=== PATIENT | male | born 1955 | race Caucasian/White ===

== ENCOUNTER 2024-11-18 09:57 | Day surgery (SDC) | payer MEDICARE, OTHER ==
[~2024-11-18] VITALS: Ht 185.4 cm; Wt 94.9 kg
[2024-11-18] VITALS (12 sets, daily range): BP systolic 119–154; BP diastolic 50–98; PULSE 60–73; RESP 15–19; TEMP 98.6; O2SAT 95–100
--- NOTE | 2024-11-18 10:18 | ELECTROCARDIOGRAPH REPORT ---
[facility] Test Date: 2024-11-18 Test Time: 10:18:23 Pat Name: ORTIZ IVY Department: [facility] Patient ID: [facility]-[id number] Room: Gender: M Cad Administrator: ROCIO : 1955 Requested By: JEANIE MADRID Order Number: [id number] Reading MD: Dr. KELLY Mendoza Measurements Intervals [place] Rate: 63 P: 39 [place]: 205 QRS: 63 QRSD: 117 T: 117 QT: 434 QTc: 445 Interpretive Statements wandering pacemaker. Atrial premature complexes Nonspecific intraventricular conduction delay Nonspecific T abnormalities, lateral leads Electronically Signed On 11-18-2024 11:18:[address] KELLY Mendoza Please click the below link to view image of tracing.
[2024-11-18] MEDS ORDERED: METF-438 PO (10:42)
[2024-11-18] MEDS ORDERED: TIRZ5PEN SQ (10:42)
[2024-11-18] MEDS ORDERED: fentaNYL/PF 50MCG/1 ML 2ML syringe ONE (10:46)
[2024-11-18] MEDS ORDERED: LIDOcaine 1% (10mg/ml) 2ml vial ONE (10:46)
[2024-11-18] MEDS ORDERED: iohexol 350 MG/ML 50ML vial IV ONE ×3 (10:46→12:22)
[2024-11-18] MEDS ORDERED: verapamil 2.5 mg/ml inj IV ONE (10:46)
[2024-11-18] MEDS ORDERED: midazolam 1 mg/ML 2ml injection ONE ×2 (10:46→11:24)
[2024-11-18] MEDS ORDERED: heparin 1,000unit/ml 10ml vial 10 ML ONE (10:47)
[2024-11-18] MEDS ORDERED: nitroGLYCERIN 500mcg/5mL D5W 5 ML IV ONE (10:48)
[2024-11-18 10:50] LABS: MEAN PLATELET VOLUME 8.0 FL (7.4-10.4); RED CELL DISTRIBUTION WIDTH 12.5 % (11.5-14.5)
[2024-11-18] MEDS: sodium bicarbonate 1meq/ml syr 150 ML in dextrose 5%-water 1,000 ML IV ONE (10:59)
[2024-11-18 11:05] LABS: INR 1.1 INR
[2024-11-18 11:07] LABS: CREATININE 1.38 MG/DL (0.60-1.10); TOTAL CARBON DIOXIDE 29.7 MMOL/L (24-32); eCRCL 56 ML/MIN; eGFR 51 ML/MIN
[2024-11-18] MEDS ORDERED: NITR0.4T48 SL (11:14)
[2024-11-18] MEDS ORDERED: ATOR-2 PO (11:14)
[2024-11-18] MEDS ORDERED: POTA8TAB69 PO (11:14)
[2024-11-18] MEDS ORDERED: ASPI-1264 PO (11:14)
[2024-11-18] MEDS ORDERED: THIA250T9 PO (11:14)
[2024-11-18] MEDS ORDERED: CLOP75TA34 PO (11:14)
[2024-11-18] MEDS ORDERED: OMEG100037 PO (11:14)
[2024-11-18] MEDS ORDERED: METO-384 PO (11:14)
[2024-11-18] MEDS ORDERED: CHLO25TA10 PO (11:14)
[2024-11-18] MEDS ORDERED: EMPA10TA PO (11:14)
[2024-11-18] MEDS ORDERED: NIAC500C8 PO (11:14)
[2024-11-18] MEDS ORDERED: CHOL200080 PO (11:26)
[2024-11-18] MEDS ORDERED: MULT-1074 PO (11:26)
[2024-11-18] MEDS ORDERED: ZINC50TA60 PO (11:26)
[2024-11-18] MEDS ORDERED: ASCO100T12 PO (11:26)
[2024-11-18] MEDS ORDERED: LIDOcaine 1% 30ml preserv. free vial ONE (11:27)
[2024-11-18] MEDS ORDERED: protamine sulfate 10mg/ml inj. ONE (12:44)
--- NOTE | 2024-11-19 04:36 | CARDIOLOGY REPORT ---
DATE OF SERVICE: 11/18/2024 DICTATING PHYSICIAN: JEANIE MADRID DO CARDIAC CATHETERIZATION REPORT REFERRING PHYSICIAN: Smith Morales MD CLINICAL HISTORY: This 69-year-old man is being considered for TAVR. Echocardiography demonstrates severe aortic stenosis. There is also a prior history of 3-vessel CABG with the use of bilateral intramedullary nails and a saphenous vein graft. PROCEDURES PERFORMED: * Right heart catheterization. * Left heart catheterization. * Left ventriculography. * Selective coronary arteriography. * Selective opacification of bypass grafts. * Percutaneous arteriotomy closure (Perclose). * A 75 minutes conscious sedation and supervision. DESCRIPTION OF PROCEDURE: The patient was sedated with fentanyl and Versed. He was then prepared and draped in the usual manner. The right cubital area had a pre-placed 18-gauge Angiocath. The area around this catheter was infiltrated with 1% lidocaine. Then, using a short 0.035 guidewire, a 6-Kyrgyz sheath was placed in the basilic vein. Using this vessel, a 6-Kyrgyz [place] Brianne catheter was used to perform a right heart catheterization. Cardiac output was determined by thermodilution technique. The right inguinal area was infiltrated with 1% lidocaine using a micropuncture set and a Seldinger technique. A 7-Kyrgyz sheath was placed in the common femoral artery. 3,000 units of heparin were given twice during this procedure. Left heart catheterization and left ventriculography were performed using a double lumen [place] catheter. Coronary arteriography was performed using #4, 6-Kyrgyz left and right Reyes catheters. The saphenous vein graft to what appeared to be an LAD diagonal was opacified using the right Reyes catheter. A left 6-Kyrgyz BALJEET catheter was used to opacify the left internal mammary bypass graft. Multiple catheters were used in an attempt to adequately opacify the right internal mammary graft, but none were optimal for visualizing the grafted right coronary, although the BALJEET graft itself was easily seen. Therefore, the right radial area was anesthetized and a 6-Kyrgyz sheath was placed in this vessel. Using an BALJEET, a Michael right was used, but neither would selectively opacify the right internal mammary because it was in a sharp curve near the origin of the brachial artery. Nevertheless, flush injections were utilized as optimally as possible. The sheath in the right common femoral artery was removed and the access site was Perclosed. The sheath in the right radial artery was removed and a Vasc band was applied. RESULTS: HEMODYNAMIC DATA: The mean right atrial pressure was 4 mmHg, right ventricular pressure was 26/4 mmHg, mean pulmonary capillary wedge pressure was 15 mmHg, pulmonary arterial pressure was 32/17 mmHg, left ventricular end-diastolic pressure was 18 mmHg. There was a 50 mm gradient across the aortic valve. Cardiac output by thermal dilution technique was 3.78 L/min. The short-form calculation of aortic valve area was 0.53 cm2. LEFT VENTRICULOGRAM: The left ventriculogram was estimated to be about 40%, but post PVC it appeared to be 60%. There is stenting in the LAD system. CORONARY ARTERIOGRAPHY: The coronary arteriograms were technically satisfactory. The patient appeared to have a right dominant system. LEFT MAIN CORONARY ARTERY: The left main was a large unobstructed vessel bifurcating into left anterior descending and circumflex coronary arteries. LEFT ANTERIOR DESCENDING CORONARY ARTERY: The LAD appeared to be large proximally, but the remainder of its distribution was medium in caliber. In the mid vessel, there was about a 60% stenosis. There also was an occluded diagonal taking its origin very close to the mid LAD stenosis. CIRCUMFLEX CORONARY ARTERY: The circumflex was a large main stem vessel. ____. There were two additional very small caliber obtuse marginal branches. There was a long medium-sized posterolateral branch narrowed by about 50% midway along its length and there was a small caliber second posterolateral. There were no high-grade stenoses in this vessel and the 50% narrowing in the first posterolateral was in a vessel judged to be about 2 mm in size. RIGHT CORONARY ARTERY: The right coronary was totally occluded proximally. SELECTIVE OPACIFICATION OF BYPASS GRAFTS: A saphenous vein graft leading to a diagonal branch was patent, but there was virtually no filling of the diagonal. Flush injections in proximity to the right internal mammary artery indicated that it was patent down to the distal right coronary ahead of the posterior descending branch. There appeared to be a posterior descending branch and at least one posterolateral branch. The left internal mammary artery was patent and anastomosed to the mid LAD. The LAD beyond the anastomosis was very small in caliber. CONCLUSIONS: * Severe aortic stenosis. There was a 50 mm transvalvular gradient and the average cardiac output was 3.73 liters per minute. Using the short form, the estimated valve area was 0.53 cm2. * Old obstructive coronary artery disease manifested as follows: A. At least 60% mid LAD. B. 100% occlusion of an LAD diagonal. C. A 50% narrowing of the first of two circumflex posterolateral branches. D. 100% proximal occlusion to the right coronary. * Bypass graft status as follows: A. LINARES to LAD patent in the graft and the [place] vessel beyond the distal anastomosis. B. Right internal mammary graft to distal right coronary is patent and it appears to fill a PDA and at least one posterolateral branch. C. Patent saphenous vein graft to a diagonal branch, but there is essentially no filling of the diagonal beyond the distal anastomosis, which nevertheless remains patent. * Left ventricular function appears to be moderately reduced. The estimated LVEF was 40%, but post PVC, it was approximately 60%. RECOMMENDATIONS: Ongoing medical therapy with consideration of TAVR. JEANIE MADRID DO TID: [id number] RECEIPT: [id number] DEENA/TASNEEM
== END 2024-11-18 17:15 | disposition home or self-care (01) ==
LOC: SSTAY O 09:57
PROVIDERS: ATTEND Internal Medicine Cardiovascular Disease
DX: I25.10 Atherosclerotic heart disease of native coronary artery without angina pectoris (principal); I35.0 Nonrheumatic aortic (valve) stenosis; I25.82 Chronic total occlusion of coronary artery; E78.5 Hyperlipidemia, unspecified; N18.9 Chronic kidney disease, unspecified; E11.22 Type 2 diabetes mellitus with diabetic chronic kidney disease; Z79.899 Other long term (current) drug therapy
CPT/HCPCS: 36415; 80048; 83735; 85025; 85610; 93005; 93461; A6258; A6402; C1751; C1760; C1769; C1887; C1894; J1200; J1644; J2003; J2250; J2720; J3010; J3490; J7030; J7070; Q9967; 99152; 99153; A6449

== ENCOUNTER 2024-12-05 09:37 | Outpatient (CLI) | payer MEDICARE, OTHER ==
[~2024-12-05 09:37] MED LIST: ASCO100T12 PO; ASPI-1264 PO; ATOR-2 PO; CHLO25TA10 PO; CHOL200080 PO; CLOP75TA34 PO; EMPA10TA PO; IODIXANOL 320 MG/ML INFUS..BTL 100ML IV ONE; METF-438 PO; METO-384 PO; MULT-1074 PO; NIAC500C8 PO; NITR0.4T48 SL; OMEG100037 PO; POTA8TAB69 PO; THIA250T9 PO; TIRZ5PEN SQ; ZINC50TA60 PO
[2024-12-05 10:11] LABS: MEAN PLATELET VOLUME 7.5 FL (7.4-10.4); RED CELL DISTRIBUTION WIDTH 12.9 % (11.5-14.5)
[2024-12-05 10:24] LABS: APTT 27 SECONDS (22-32); INR 1.0 INR
[2024-12-05 11:29] LABS: CREATININE 1.88 MG/DL (0.60-1.10); PRO BRAIN NATRIURETIC PEPTIDE 442 PG/ML (0-125); TOTAL CARBON DIOXIDE 28.2 MMOL/L (24-32); eGFR 36 ML/MIN
--- NOTE | 2024-12-05 12:13 | RADIOLOGY REPORT ---
DI CHEST,TWO VIEWS CLINICAL HISTORY: TAVR COMPARISON: None TECHNIQUE: Frontal and lateral view of the chest was obtained FINDINGS: Lines and Tubes: None Lungs: No focal consolidation. Pleura: No effusion. No pneumothorax. Cardiomediastinal contours: Cardiomegaly Bones: No acute osseous abnormality. IMPRESSION: No acute cardiopulmonary disease.
--- NOTE | 2024-12-05 12:51 | VASCULAR REPORT ---
US CAROTID DOPPLER CLINICAL INDICATION: Hypertension, diabetes, preoperative evaluation TECHNIQUE: Multiple grayscale, color Doppler and spectral Doppler ultrasound images were obtained thr oughout both carotid systems. COMPARISON: None FINDINGS: RIGHT: CCA PSV: 66 cm/s ECA PSV: 93 cm/s ICA PSV: 64 cm/s ICA EDV: 22 cm/s ICA/CCA Ratio: 1.2 Vertebral artery: Patent, antegrade flow. There is no visible stenosis. Mild mixed atherosclerotic plaque at the carotid bifurcation. Spectral analysis demonstrates no hemodynamically significant CCA or ICA stenosis. LEFT: CCA PSV: 105 cm/s ECA PSV: 58 cm/s ICA PSV: 64 cm/s ICA EDV: 25 cm/s ICA/CCA Ratio: 0.9 Vertebral artery: Patent, antegrade flow. There is no visible stenosis. Mild mixed atherosclerotic plaque at the carotid bifurcation. Spectral analysis demonstrates no hemodynamically significant CCA or ICA stenosis. IMPRESSION: No evidence of hemodynamically significant CCA or ICA stenosis.
--- NOTE | 2024-12-06 12:58 | RADIOLOGY REPORT ---
Procedure: CT CTA TAVR Reason for study/Clinical History: Chest pain, evaluate for dissection. Comparison Study: None Exam Date: 12/05/2024 11:58 AM TECHNIQUE: Multiplanar reformatted images were generated from volumetric data acquired on a multidetector CT [facility]. Cardiac gating was utilized. Arterial phase images were obtained through the chest, abdomen and pelvis following intravenous administration of contrast material. 100 mL visipaque [address] dose reduction techniques were utilized. 3-D reconstructions were performed on an independent work station. Radiation Dose Information: CT Dose: CTDI volume is 65 mGy. Dose-length product is 2454 mGy*cm FINDINGS: Vascular: Aortic measurements: Aortic annulus: 32.2 x 26.1 mm Sinus of valsalva: right cusp 36.5 mm, left cusp 38.9 mm, non-coronary cusp 42.7 mm Right coronary distance: 19.8 Left coronary distance: 11.1 ST junction 33.1 mm Ascending aorta 37.5 mm Aortic arch 27.8 mm Descending aorta 25.4 mm Aortic hiatus 25 mm Upper abdominal aorta 23.6 mm Minimal abdominal aorta 15.8 mm Right common iliac 10.3 mm, tortuosity index 1.17 Left common iliac 9.69 mm, tortuosity index 1.21 There is normal caliber of aorta. No aortic dissection. Aortic arch anatomy is 4 vessel. There is con ventional coronary artery anatomy. Scattered calcified atherosclerotic plaque. No central pulmonary embolism. There is normal dimension of the main pulmonary artery. Heart is mildly enlarged. There are no intracardiac filling defects. No pericardial effusion. Mediastinum: Subcentimeter mediastinal nodes. Lungs: Atelectasis and scarring in the lung bases. Pleura: No effusion or pneumothorax. Chest wall: No acute abnormality. Abdomen and Pelvis: Liver: Subcentimeter cysts in the liver. Gallbladder: Cholelithiasis. Spleen: Normal in appearance. Pancreas: Normal in appearance. Adrenals: Normal in appearance. Kidneys: Normal in appearance. Bowel: Normal in appearance. Peritoneum: No free air or free fluid. Fat containing bilateral inguinal hernias left greater than ri ght. Lymph nodes: No lymphadenopathy by CT size criteria. Pelvic structures: No pelvic mass. Bones: Degenerative changes in the spine. IMPRESSION: 1. TAVR planning with vascular measurements as described above. 2. Mild cardiomegaly. Subcentimeter cysts in the liver. Cholelithiasis. Fat containing bilateral ing uinal hernias left greater than right. HS:Y
== END 2024-12-05 23:59 | disposition home or self-care (01) ==
LOC: RAD 09:37
PROVIDERS: ATTEND Internal Medicine Cardiovascular Disease
DX: Z01.818 Encounter for other preprocedural examination (principal); I65.23 Occlusion and stenosis of bilateral carotid arteries; K80.20 Calculus of gallbladder without cholecystitis without obstruction; K40.20 Bilateral inguinal hernia, without obstruction or gangrene, not specified as recurrent; I11.9 Hypertensive heart disease without heart failure; K76.89 Other specified diseases of liver; I70.90 Unspecified atherosclerosis; J98.11 Atelectasis; J98.4 Other disorders of lung; M47.814 Spondylosis without myelopathy or radiculopathy, thoracic region; E11.9 Type 2 diabetes mellitus without complications; I35.0 Nonrheumatic aortic (valve) stenosis; R06.02 Shortness of breath; I65.29 Occlusion and stenosis of unspecified carotid artery
CPT/HCPCS: 36415; 71046; 71275; 74174; 75572; 80053; 83880; 85025; 85610; 85730; 93880; Q9967

== ENCOUNTER 2024-12-12 13:49 | Outpatient (CLI) | payer MEDICARE, OTHER ==
[~2024-12-12] VITALS: Ht 185.4 cm; Wt 91.9 kg
[~2024-12-12 13:49] MED LIST changes: -IODIXANOL 320 MG/ML INFUS..BTL 100ML IV ONE
[2024-12-12 15:21] VITALS: BP 138/80; PULSE 73; RESP 16; TEMP 97.8; O2SAT 99
--- NOTE | 2024-12-12 16:34 | CONSULTATION ---
DATE OF CONSULTATION: 12/12/2024 DICTATING PHYSICIAN: Checo Gibbons M.D. CARDIOVASCULAR CONSULTATION REFERRING PHYSICIAN: Smith Morales DO Dear Dr. Morales, we had the pleasure of seeing the patient here for cardiovascular consultation with regard to severe symptomatic aortic valve stenosis. As you recall, a very pleasant 69-year-old gentleman. He has a history of previous multivessel bypass [place] [address] Morley. At that time, he had a LINARES to the LAD, a JENNY to the PDA, and a reverse saphenous vein graft to the diagonal. He subsequently had stenting done in 2013 with PCI to the LAD and the diagonal and he has undergone recent angiographic imaging showing most of his grafts to be patent. He has hypertension, hyperlipidemia, diabetes, obstructive sleep apnea, and progressive worsening aortic valve stenosis. He was found to have an overall ejection fraction of 40% despite this, a mean gradient across the aortic valve of 41 mmHg. He has had progressive shortness of breath and dyspnea on exertion. He has balance problems and lower leg fatigue and was sent to us to determine whether or not he was a candidate for TAVR. He has been seen in clinic by Dr. Morley, who agrees TAVR would be in his best interest. PAST MEDICAL HISTORY: * Severe symptomatic aortic valve stenosis. * Systolic heart failure, EF 40%. * Hyperlipidemia. * Diabetes. * Obstructive sleep apnea, on CPAP. * Coronary artery disease. PAST SURGICAL HISTORY: Three-vessel bypass surgery in [address] Morley. MEDICATIONS: Metformin 1000 mg twice a day, metformin 50 mg sustained release a day, Lipitor 80 mg a day, Plavix 75 mg a day, chlorthalidone 25 mg a day, potassium supplementation, metoprolol extended release 50 mg twice a day, lisinopril 20 mg a day, glyburide 5 mg a day, Norvasc 5 mg a day, Imdur 60 mg a day. ALLERGIES: HE HAD SHORTNESS OF BREATH WITH BRILINTA. SOCIAL HISTORY: Currently nonsmoker. Occasional alcohol use. He is and his , Manuela, is here with him today. PHYSICAL EXAMINATION: VITAL SIGNS: His blood pressure is 125/75 with a heart rate of 65. He weighs around 208 pounds. GENERAL: Well-appearing but sedentary gentleman, in no apparent distress at rest. HEENT: Unremarkable. CARDIOVASCULAR: Regular. He has a 3/6 peaking systolic ejection murmur with a soft S2. No RV heave. LUNGS: Clear. ABDOMEN: Benign. EXTREMITIES: Has very mild bilateral edema. LABORATORY TESTS AND EVALUATION: * CT scan shows that he is a candidate for a 29 mm valve by transfemoral approach. * Carotid duplex shows nonobstructive disease. * Chest x-ray shows no acute cardiopulmonary findings. * Pending labs, he has a white blood cell count of 6.3, hemoglobin of 15.5, platelet count 230,000. His creatinine is 1.88. ProBNP is 442. * Angiographic imaging of his coronary anatomy, which took place in 11/2024, showed the patient to have normal right heart pressures, an aortic valve area of 0.53 cm2, and an EF of 40%. He has some narrowing in his LAD and an occluded diagonal, which fills by collaterals, some moderate circumflex disease. He has a patent LINARES to the LAD, a patent JENNY to the distal RCA, and fills with PDA and posterolateral branch and a patent saphenous vein graft to the diagonal, but not much filling in the diagonal beyond this. * Echocardiogram shows concentric LVH, severe aortic valve stenosis with mild insufficiency, a mean gradient across the aortic valve of 41 mmHg and a valve area of 0.6 cm2. * EKG shows him to be in sinus with evidence of inferior ST-T wave changes. ASSESSMENT AND PLAN: A 69-year-old gentleman with the above-stated past medical history who has undergone previous bypass surgery and stenting, here for assessment for severe symptomatic aortic valve stenosis. * I do think the patient is a good candidate for transfemoral TAVR. We will get this scheduled shortly, 29 mm Wheeler valve. * Coronary artery disease, status post bypass surgery on guideline-directed medical therapy including dual antiplatelet therapy and statin. * Variable overall ejection fraction between 40-60% on good therapy. * Diabetes, on therapy. * Obstructive sleep apnea, on CPAP. Dr. Morales, thank you for allowing us the opportunity to see the patient. We will get him in shortly for valve replacement. If we can be of any further assistance with this or any patient in the future, please do not hesitate to call. Checo Gibbons M.D. TID: [id number] RECEIPT: [id number] LYLY
--- NOTE | 2024-12-12 17:41 | RADIOLOGY REPORT ---
EXAM: CT CT HEAD, CT CTA NECK/HEAD DATE OF SERVICE: 12/12/2024 04:39 PM ORDERING PHYSICIAN: MIRA RAMEY REASON FOR EXAM: pre-TAVR/ h/o strokes TECHNIQUE: CTA of the brain and neck was performed after the administration of contrast . Axial imag es of the head and neck are obtained. Coronal and sagittal images were then reformatted for review. M IP reformats were obtained and reviewed. COMPARISON: None FINDINGS: FINDINGS: There is no intracranial hemorrhage. There is no extra-axial fluid, mass, mass effect or midline shif t. The ventricles are midline and normal in size. Basilar cisterns are patent. [id number]-[id number] periv entricular and subcortical white matter chronic microvascular ischemic changes. Old right basal gangl ia lacunar infarct. The paranasal sinuses and mastoids are well-pneumatized. Imaged portion of the orbits are unremarkabl e. The right common carotid artery demonstrates no high-grade stenosis. Mild calcification right carotid bulb. Right internal carotid artery demonstrates no high-grade stenosis. Right middle cerebral artery demonstrates no high-grade stenosis. The right anterior cerebral artery demonstrates no high-grade stenosis. The left common carotid artery demonstrates no high-grade stenosis. There is mild calcification of th e left carotid bulb. Left internal carotid artery demonstrates no high-grade stenosis. The left middle cerebral artery demonstrates no high-grade stenosis. The left anterior cerebral artery demonstrates no high-grade stenosis. The right vertebral artery demonstrates no high-grade stenosis. The left vertebral artery demonstrates no high-grade stenosis. Basilar artery demonstrates no high-grade stenosis. The bilateral posterior cerebral arteries demonstrate no high-grade stenosis. Moderate to advanced cervical degenerative disc disease. Moderate cervical facet hypertrophic change s. Posterior paraspinal mineralization. Multilevel moderate to severe cervical neural foraminal steno sis. IMPRESSION: Gupb-[id number]-[id number] chronic microvascular ischemic changes. Old right basal ganglia lacunar infarct. No large vessel high-grade stenosis.
== END 2024-12-12 23:59 | disposition home or self-care (01) ==
LOC: TAVR 13:49
PROVIDERS: ATTEND Internal Medicine Cardiovascular Disease
DX: I65.21 Occlusion and stenosis of right carotid artery (principal); I65.9 Occlusion and stenosis of unspecified precerebral artery; M50.30 Other cervical disc degeneration, unspecified cervical region; R06.02 Shortness of breath; I67.82 Cerebral ischemia; M48.02 Spinal stenosis, cervical region; I63.81 Other cerebral infarction due to occlusion or stenosis of small artery
CPT/HCPCS: 70450; 70496; 70498; Q9967

== ENCOUNTER 2025-01-02 05:32 | Inpatient (IN) | payer MEDICARE, OTHER ==
[2024-12-25 11:09] LABS: MEAN PLATELET VOLUME 7.7 FL (7.4-10.4); PRE OP HEMATOCRIT 42.8 % (42.0-52.0); PRE OP HEMOGLOBIN 15.0 g/dL (14.0-17.9); PRE OP PLATELET COUNT 221 X10'3 (140-440); PRE OP WHITE BLOOD COUNT 6.0 10'3 (4.8-10.8); RED CELL DISTRIBUTION WIDTH 12.8 % (11.5-14.5)
[2024-12-25 11:31] LABS: PRE OP INR 1.0 INR; PRE OP PARTIAL THROMB. TIME 27.0 SECONDS (22-32); PRE OP PROTIME 10.4 SECONDS (9.0-12.0)
[2024-12-25 11:33] LABS: CREATININE 1.69 MG/DL (0.60-1.10); PRE OP ALT 20 U/L (30-65); PRE OP ANION GAP 9 (8-16); PRE OP AST 21 U/L (10-37); PRE OP BILIRUB, TOTAL 1.1 MG/DL (0.0-1.0); PRE OP GLUCOSE 148 MG/DL (70-104); PRE OP POTASSIUM 3.7 MMOL/L (3.4-5.1); PRE OP SODIUM 140 MMOL/L (135-145); PRO BRAIN NATRIURETIC PEPTIDE 530 PG/ML (0-125); TOTAL CARBON DIOXIDE 28.0 MMOL/L (24-32); eGFR 40 ML/MIN
[2024-12-25 11:34] LABS: LEUKOCYTE ESTERASE ,URINE NEGATIVE (Neg); NITRITES, URINE NEGATIVE (Neg); OCCULT BLOOD,URINE NEGATIVE (Neg)
[2024-12-25 11:39] LABS: UA COLLECTION TYPE CLN CATCH MIDSTREAM
--- NOTE | 2024-12-25 11:42 | ELECTROCARDIOGRAPH REPORT ---
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 KELLY Mendoza Measurements Intervals [place] Rate: 60 P: 24 MS: 183 QRS: 62 QRSD: 114 T: 86 QT: 431 QTc: 431 Interpretive Statements Sinus rhythm Borderline intraventricular conduction delay Borderline T abnormalities, lateral leads Electronically Signed On 12-27-2024 20:18:[address] KELLY Mendoza Please click the below link to view image of tracing.
[2024-12-25 11:49] LABS: FINE GRANULAR CAST 0-3 /LPF (NEGATIVE); MUCUS STRANDS FEW /LPF (Neg); SQUAMOUS EPITHELIAL CELL,UR FEW /LPF (FEW)
--- NOTE | 2024-12-25 11:54 | RADIOLOGY REPORT ---
DI CHEST,TWO VIEWS, HISTORY: PREOP COMPARISON: DI CHEST,TWO VIEWS on DOS: 12/05/24 DI CHEST,TWO VIEWS on DOS: 12/05/24 TECHNICAL DATA: 2 view of the chest was obtained. FINDINGS: Lines and tubes: None Cardiomediastinal silhouette: normal Pulmonary vasculature: normal Lung expansion: normal Lung airspace: normal Lung interstitium: normal Pleura: normal Pneumothorax: no Bones: Unremarkable Other: Sternotomy wires and mediastinal clips are noted. IMPRESSION: No acute intrathoracic abnormality.
[~2025-01-02] VITALS: Ht 185.4 cm; Wt 92.5 kg
[2025-01-02] VITALS (27 sets, daily range): BP systolic 124–159; BP diastolic 60–90; PULSE 59–83; RESP 10–22; TEMP 96.9–97.7; O2SAT 91–99
[2025-01-02] MEDS: DOCUMENT DATE & TIME OF BETA-BLOCKER PO ONE (05:30)
[2025-01-02] MEDS: ceFAZolin 2gm/dext,iso 50mL 50 ML IV ONE (05:30)
[~2025-01-02 05:32] MED LIST changes: -ATOR-2 PO; +ATOR40TA72 PO; +Insulin Reg/NS 100units/100mL 100 ML IV SCH; +MECL-302 PO; +OXYM30SP26 BOTHNARES; +ZINC220C7 PO; -ZINC50TA60 PO; +dextrose 50%-water 50ml dispensing syringe IV PRN; +insulin glargine (Lantus) pen - multi-dose SQ PRN; +nitroPRUSSIDE (NIPRIDE) (200MCG/ML) 100ML Drip IV SCH; +ondansetron/PF 4mg/2ml inj IV PRN; +phenylephrine inj 50 MG in normal saline 250ml IV solN IV SCH
[2025-01-02] MEDS ORDERED: LIDOcaine 1% 30ml preserv. free vial ONE (06:24)
[2025-01-02] MEDS ORDERED: heparin 1,000 UNITS/NS 500ml 1,500 ML ONE (06:24)
[2025-01-02] MEDS ORDERED: protamine sulfate 10mg/ml inj. ONE (06:26)
[2025-01-02] MEDS: ringers solution, lacted 1,000 ML IV SCH (06:30)
[2025-01-02] MEDS: VANCOMYCIN/H2O 1.5g/300mL PB 300 ML IV ONE (06:30)
[2025-01-02] MEDS ORDERED: midazolam 1 mg/ML 2ml injection ONE (07:12)
[2025-01-02] MEDS ORDERED: fentaNYL/PF 50MCG/1 ML 2ML syringe ONE ×2 (07:12→07:41)
[2025-01-02] MEDS ORDERED: propofol inj 20 ML IV ONE (07:34)
[2025-01-02] MEDS ORDERED: heparin 1,000unit/ml 10ml vial 10 ML ONE (07:34)
[2025-01-02] MEDS ORDERED: LIDOcaine 1%/PF 5ML 10 MG/ML VIAL ONE (07:34)
[2025-01-02] MEDS ORDERED: glucagon, human recombinant 1mg kit SUBCUT PRN (08:30)
[2025-01-02] MEDS ORDERED: labetalol 20mg/4ml (5mg/ml) syringe IV PRN (08:30)
[2025-01-02] MEDS ORDERED: potassium CL 10mEq/100ml bag 100 ML IV PRN (08:30)
[2025-01-02] MEDS ORDERED: potassium Cl 40MEQ/270ML bag 250 ML IV PRN (08:30)
[2025-01-02] MEDS ORDERED: ondansetron/PF 4mg/2ml inj IV PRN (08:30)
[2025-01-02] MEDS ORDERED: dextrose 50%-water 50ml dispensing syringe IV PRN ×2 (08:30)
[2025-01-02] MEDS: normal saline 1000ml 1,000 ML IV SCH (08:30)
[2025-01-02] MEDS ORDERED: pantoprazole 40mg Tablet.DR PO PRN (08:30)
[2025-01-02] MEDS ORDERED: docusate sod 100mg capsule PO PRN (08:30)
[2025-01-02] MEDS ORDERED: DEXTROSE 15 GM of carb/4 tabs (each vial/BOTTLE has 4 tablets) PO PRN ×2 (08:30)
[2025-01-02] MEDS ORDERED: magnesium sulf-water 4G/100mL 100 ML IV PRN (08:30)
[2025-01-02] MEDS ORDERED: HYDROcodone/acetaminophen 5mg/325mg tablet PO PRN (08:30)
[2025-01-02] MEDS ORDERED: potassium Cl 20mEq/100mL bag 100 ML IV PRN (08:30)
[2025-01-02] MEDS ORDERED: ALPRAZolam 0.25mg tablet PO PRN (08:30)
[2025-01-02] MEDS ORDERED: potassium Cl 40MEQ/1/2NS 520ml 520 ML IV PRN (08:30)
[2025-01-02] MEDS ORDERED: potassium Cl 20 mEq SR tablet PO PRN (08:30)
[2025-01-02] MEDS ORDERED: magnesium sulf-water 2g/50mL 50 ML IV PRN (08:30)
[2025-01-02] MEDS ORDERED: hydrALAZINE 20mg/ml inj. IV PRN (08:30)
--- NOTE | 2025-01-02 08:38 | OPERATIVE REPORT ---
Operative Report Providers to CC CC: Smith Morales MD ~ Date of Procedure: Jan 02, 2025 Pre-Operative Diagnosis: Severe Aortic Stenosis Post-Operative Diagnosis SAME as PRE-Op Procedure Performed 1. Ultrasound-guided access, bilateral femoral vessels. 2. Bilateral femoral angiography. 3. Ascending aortography. 4. Temporary transvenous pacer to the RV apex. 5. Balloon Aortic Valvuloplasty with a 24mm balloon 6. Placement of a 29 +1 mm Wheeler S3 Resilia valve. Surgeon: Capri Higgins MD Child Care Cook MD Dr. 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 They underwent general anesthesia. Ultrasound was used to guide access to the bilateral femoral vessels, 7-Serbian sheath, left femoral artery, 6-Serbian sheath, right femoral artery and left femoral vein. Bilateral femoral angiograms were obtained. Heparin was given to maintain an ACT over 250 seconds. Two edgar-cross Perclose devices were placed on the right. We upsized to an 8- Serbian sheath. Two pigtail catheters placed in the ascending aorta. Ascending aortography done to determine the angle of deployment. Temporary transvenous pacer to the RV apex and confirmed capture. We upsized an 8-Serbian sheath to a 16-Serbian Wheeler eSheath on the right. We crossed the aortic valve using a straight stiff exchange length Terumo wire supported by a 6-Serbian AL1 catheter. LV AO pressures were recorded. A [employer] extra support wire was placed in the left ventricle. Next, a 24mm balloon was brought into position and under rapid ventricular pacing, it was inflated. Subsequently, A 29+1 mm Wheeler S3 Resilia valve was brought to position and under rapid right ventricular pacing was deployed. Post-procedure, there was trace to 1+ AI and no residual . Guidewires and balloons were removed at this time. The temporary pacer was removed. The 16-Serbian Wheeler eSheath was removed and the Perclose devices tied with adequate hemostasis. The arterial sheath on the left was removed and a single Perclose tied. The venous sheath on the left was removed and a single Angioseal used for hemostasis. Protamine was given to reverse the effects of heparin. The patient was stable post-procedure. Good pulses in the legs and no evidence of bleeding, transferred to the PACU in stable condition. HEMODYNAMICS: Pre: LV: 171/6 mmHg LVEDP: 18mmHg Ao: 141/69, MAP 96mmHg Post: LV: 129/8 mmHg LVEDP: 21 mmHg Ao: 129/58, MAP 85mmHg RESULTS: 1. Successful balloon aortic valvuloplasty with a 24 mm balloon. 2. Successful placement of a 29+1 mm Wheeler S3 Resilia valve, right transfemoral approach, two perclose devices. ASA 81mg QD 3. Hypertension: Resume if blood pressure remains stable 4. CAD: s/p CABG. Resume GDMT 5. HFmrEF, acute on chronic, LVEDP 18mmHg. 6. DM: RISS Patient will be watched in the recovery area until stable, then transferred to telemetry at that time. CAPRI HIGGINS MD Jan 02, 2025 08:38
--- NOTE | 2025-01-02 08:55 | ELECTROCARDIOGRAPH REPORT ---
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 KELLY Mendoza Measurements Intervals [place] Rate: 74 P: 41 TN: 176 QRS: 36 QRSD: 114 T: 170 QT: 439 QTc: 487 Interpretive Statements Sinus rhythm Borderline intraventricular conduction delay Nonspecific T abnormalities, diffuse leads Borderline prolonged QT interval Electronically Signed On 01-02-2025 16:32:[address] KELLY Mendoza Please click the below link to view image of tracing.
[2025-01-02] MEDS ORDERED: INSULIN LISPRO 100 UNIT/ML INSULN.PEN MULTI-DOSE SQ SCH (12:00)
[2025-01-02] MEDS: INSULIN LISPRO 100 UNIT/ML INSULN.PEN MULTI-DOSE SQ SCH (12:00)
--- NOTE | 2025-01-02 15:59 | CARDIOLOGY REPORT ---
APPROVED REPORT EXAM: Focused, limited intraprocedural transthoracic 2D, spectral and color flow Doppler echocardiogr am during TAVR deployment. Patient Location: CARDIAC TRANSITION MGR RN Blood Pressure: 139/78 mmHg Heart Rate: 60's bpm Rhythm: ATRIAL FIBRILLATION Indications SEVERE AORTIC STENOSIS 29mm Wheeler Rhonda 3 Ultra RESILIA Bioprosthetic TAVR 24mm Mountainair Gold BAV balloon HYPERTENSION HYPERLIPIDEMIA CORONARY DISEASE - CABG X 3 2014, PCI 2014 DIABETES Flight Attendant/Inflight Supervisor: Saroj TURNER MD / Interventionalist: Jaskaran Higgins MD and Elle Gibbons MD. / Surgeon: EDMOND Mathur MD. / Device rep: Marti RENE ELS Previous echo: 10/22/24 PK RHC EF: 61%; DINESH: 0.6; PKV: 4.08; GRSAD: 66/41; LVOT 2.00 LEFT VENTRICLE Normal LV size and function. Mild concentric hypertrophy. LVEF is 65%. RIGHT VENTRICLE RV is normal size and function. ATRIA Left atrium appears at least mildly dilated. AORTIC VALVE Functionally bicuspid AV appears heavily calcified (extending to LVOT) with significant stenosis demo nstrated by reduced excursion and increased transvalvular and ascending aorta turbulance. DINESH: 0.65 c msq; Pkv: 4.76 m/sec; Gradients: 91 / 56 mmHG. Mild insufficiency. BAV: 24mm Mountainair Gold BAV balloon. POST DEPLOYMENT (LOOP:48): 29 mm Wheeler Rhonda 3 Ultra Resilia bioprosthetic TAVR appears well seat ed with normal function. Trace paravalvular leaks present at 1, 7, 11 o'clock in TTE SAX BASE. DINESH is measured at 4.40 cmsq. Peak / mean gradients of 7 / 3 mmHG. Peak velocity is measured at 1.36m/s ec. MITRAL VALVE Moderate MV annular calcification without stenosis. Trace regurgitation. TRICUSPID VALVE TV appears structurally normal with mild regurgitation. PULMONIC VALVE Normal PV without stenosis, physiologic insufficiency. GREAT VESSELS Aortic root is normal in size. Ascending aorta is normal in size. PERICARDIUM Normal pericardium. No effusion. Prominent anterior epicardial fat pad.
[2025-01-02] MEDS: sod chloride 0.9% 10ml flush syringe IV SCH (16:00)
[2025-01-02] MEDS: ceFAZolin 1GM/D5W- ADD-VANTAGE 50 ML IV SCH (17:41)
[2025-01-02] MEDS ORDERED: niacin 500mg timed-release capsule PO SCH (20:00)
[2025-01-02] MEDS: oxymetazoline 15 ML nasal spray NS SCH (20:00)
[2025-01-02] MEDS: vancomycin/NS 1 GM ADD-VANTAGE 250 ML IV SCH (20:25)
[2025-01-02] MEDS: metoprolol succinate 25mg (24-HOUR) SR. Tablet PO SCH (20:25)
[2025-01-03 02:00] VITALS: BP 126/69; PULSE 65; RESP 18; TEMP 97.8; O2SAT 98
[2025-01-03 06:00] VITALS: BP 126/71; PULSE 64; RESP 16; TEMP 97.5; O2SAT 93
--- NOTE | 2025-01-03 07:36 | RADIOLOGY REPORT ---
CHEST RADIOGRAPH Indication: s/p TAVR Technique: Single frontal view of the chest was obtained COMPARISON: DI CHEST,TWO VIEWS on DOS: 12/25/24, DI CHEST,TWO VIEWS on DOS: 12/05/24 FINDINGS: Lines and Tubes: None Lungs: Clear Pleura: No effusion. No pneumothorax. Cardiomediastinal contours: Cardiomegaly status post median sternotomy. Bones: Unremarkable IMPRESSION: 1. Cardiomegaly.
[2025-01-03 07:39] LABS: MEAN PLATELET VOLUME 8.3 FL (7.4-10.4); RED CELL DISTRIBUTION WIDTH 13.3 % (11.5-14.5)
[2025-01-03] MEDS ORDERED: zinc sulfate 220mg capsule PO SCH (08:00)
--- NOTE | 2025-01-03 08:12 | ELECTROCARDIOGRAPH REPORT ---
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 KELLY Mendoza Measurements Intervals [place] Rate: 60 P: 1 KS: 210 QRS: 29 QRSD: 127 T: 142 QT: 446 QTc: 446 Interpretive Statements Sinus rhythm Atrial premature complex Nonspecific intraventricular conduction delay Borderline repolarization abnormality Electronically Signed On 01-03-2025 15:19:[address] KELLY Mendoza Please click the below link to view image of tracing.
[2025-01-03 08:33] LABS: CREATININE 1.41 MG/DL (0.60-1.10); PRO BRAIN NATRIURETIC PEPTIDE 1410 PG/ML (0-125); TOTAL CARBON DIOXIDE 26.9 MMOL/L (24-32); eCRCL 55 ML/MIN; eGFR 50 ML/MIN
[2025-01-03] MEDS: cholecalciferol (vitamin D3) 1,000 unit (25mcg) tablet PO SCH (09:50)
[2025-01-03] MEDS: multivitamins, therapeutics tablet PO SCH (09:52)
[2025-01-03] MEDS: potassium chloride 8mEq ER tablet PO SCH (09:52)
[2025-01-03 11:00] VITALS: BP 123/59; PULSE 66; RESP 16; RESP 17; TEMP 98.5; O2SAT 97; O2SAT 98
[2025-01-03 15:00] VITALS: BP 129/61; PULSE 65; RESP 16; TEMP 98.9; O2SAT 98
--- NOTE | 2025-01-03 16:05 | DISCHARGE SUMMARY ---
Discharge Summary Providers to CC ~ Discharge Summary Admission Diagnosis: Severe Aortic Stenosis Hospital Course DATE OF ADMISSION: 01/02/25 DATE OF DISCHARGE:01/03/25 Discharge Diagnosis\Comment: Severe, symptomatic aortic stenosis status post TAVR Hypokalemia Hypertension CAD Heart failure with mid-range ejection fraction, acute on chronic Diabetes mellitus Operations\Procedures: 1. Ultrasound-guided access, bilateral femoral vessels. 2. Bilateral femoral angiography. 3. Ascending aortography. 4. Temporary transvenous pacer to the RV apex. 5. Balloon Aortic Valvuloplasty with a 24mm balloon 6. Placement of a 29 +1 mm Wheeler S3 Resilia valve. Consultants: No consultants Complications: No complications Condition on DC: Stable Continued Medications: Ascorbic Acid (Vitamin C) 100 Mg Tablet 1 TAB PO DAILY for 30 Days, #30 TAB 0 Refills Aspirin* (Aspirin*) 325 Mg Tablet 1 TAB PO DAILY for 30 Days, #30 TAB Atorvastatin Calcium (Atorvastatin Calcium) 40 Mg Tablet 1 TAB PO BID for 30 Days, #30 TAB 0 Refills PT TAKES 40 MG BID FOR TDD OF 80 MG Chlorthalidone (Chlorthalidone) 25 Mg Tablet 1 TAB PO DAILY Cholecalciferol (Vitamin D3) (Vitamin D3) 50 Mcg (2000 Unit) Capsule 1 CAP PO DAILY for 30 Days, #30 CAP 0 Refills Clopidogrel Bisulfate (Clopidogrel) 75 Mg Tablet 1 TAB PO DAILY Empagliflozin (Jardiance) 10 Mg Tablet 1 TAB PO BID Meclizine HCl (Meclizine HCl) 25 Mg Tablet 1 TAB PO DAILY PRN for dizziness/vertigo Metformin HCl (Metformin HCl) 1,000 Mg Tablet 1 TAB PO BID Metoprolol Succinate (Metoprolol Succinate) 50 Mg Tab.sr.24h 1 TAB PO BID Multivitamin (Multi-Vitamin Daily) 1 Each Tablet 1 TAB PO DAILY for 30 Days, #30 TAB 0 Refills Niacin (Niacin) 500 Mg Capsule.sa 2 CAP PO BID for 30 Days, #30 CAP 0 Refills Nitroglycerin (Nitroglycerin) 0.4 Mg Tab.subl 1 TAB SL UD for chest pain, #25 TAB 0 Refills 1st sign of attack; may repeat every 5 mins; if pain persists after 3 in 15 min, medical attention is recommended [place]-3/Dha/Epa/Fish Oil (Fish Oil 1,000 mg Softgel) 1,000 Mg (120 Mg-180 Mg) Capsule 2 CAP PO BID for 30 Days, #60 CAP 0 Refills Oxymetazoline HCl (Afrin) 0.05 % [place] 2 SPRAYS BOTHNARES Q12H, 0 Refills Potassium Chloride (Klor-Con 8) 8 Meq Tablet.er 4 TAB PO DAILY Thiamine HCl (Vitamin B-1) 250 Mg Tablet 2 TAB PO BID Tirzepatide (Mounjaro) 5 Mg/0.5 Ml Pen.injctr 5 MG SQ Q7D Zinc Sulfate (Zinc-220) 50 Mg Zinc (220 Mg) Capsule 1 CAP PO DAILY Discharge Summary: Patient with history of severe aortic stenosis, systolic heart failure with LVEF of 40%, hyperlipidemia, diabetes, sleep apnea and CAD. Found to have severe aortic stenosis and presented for planned TAVR. Underwent placement of a 29+ 1 mm Wheeler S3 resilient valve with Dr. Brittny Higgins and Dr. Checo Gibbons. Please see Dr. Brittny Higgins's dictation for further details on the procedure. He was monitored overnight in the telemetry unit. Remained hemodynamically stable. Postoperative testing was reviewed by Dr. Checo Gibbons and Dr. Brittny Higgins and patient was deemed stable for discharge home. Was found to have potassium of 3.2 which was replaced with 40 mEq p.o. potassium. Patient was educated to increase his oral potassium at home by doubling his prescription for the next two days and follow up with primary care provider. Physical exam prior to discharge: General: Awake, alert, oriented. No apparent distress Neck: Supple. Normal range of motion. No JVD Respiratory: Lungs are clear to auscultation bilaterally. No respiratory distre ss. Chest: Normal shape and size. No accessory muscle use. Cardiovascular: Regular rate and rhythm. S1-S2. No murmur, gallop, rub. Gastrointestinal: Abdomen is soft. Nontender to palpation. Bowel sounds present. Extremities: No lower extremity edema, cyanosis or clubbing. Bilateral femoral cath sites with dressings clean dry and intact. No ecchymosis or swelling. No hematoma. Dorsalis pedis pulses are plus two. Neurologic: Alert and oriented x4. Nonfocal Psychiatric: Normal mood and affect. Skin: Normal color. Warm and dry. Plan: Patient is being discharged home in stable condition. He will take his medications as prescribed. Education on follow up, activity restrictions reviewed. Case reviewed with Dr. Brittny Higgins who is in agreement with discharge home. *Problems/Diagnosis: (1) Aortic stenosis (2) Hypokalemia (3) Hypertension (4) Coronary artery disease (5) Acute on chronic systolic heart failure (6) Diabetes mellitus Total Time Spent on D/C: > 30 Minutes Counseling Services Smoking & Tobacco Cessation: N/A Supervising MD Co-signing Provider: MULU Bennett NP Jan 03, 2025 16:05
[2025-01-03] MEDS: potassium Cl 20 mEq SR tablet PO STA (16:12)
--- NOTE | 2025-01-03 17:51 | CARDIOLOGY REPORT ---
APPROVED REPORT EXAM: Limited 2D, Doppler, and color-flow Echocardiogram. Patient Location: 302 Blood Pressure: 126/69 mmHg Heart Rate: 63 bpm Indications ONE DAY FOLLOW UP TAVR 29 mm Wheeler Rhonda 3 Ultra RESILIA Bioprosthetic TAVR MIXING PLANT DUMPER: Saroj Morales MD Previous ECHO: 01/02/25, [facility], EF: 65; DINESH: 4.40; GRAD: 7 / 3; PKV: 1.36 2D Dimensions IVSd 1.3 (0.7-1.1cm) LVDd 4.9 cm PWd 1.4 (0.7-1.1cm) IVSs 2.1 (0.8-1.2cm) LVDs 3.1 (2.5-4.0cm) PWs 1.8 (0.8-1.2cm) LVOT Diameter 2.90 (1.8-2.4cm) LVEF(%) 66.3 (>50%) IVC 15.74 mmFS (%) 36.6 % SV 75.6 ml CO 4.8 L/min Aortic Valve AoV Peak Ray. 183.1 cm/s AoV VTI 36.0 cm AO Peak GR. 13.4 mmHg AO Mean GR. 6 mmHg LVOT VTI 27.78 cm LVOT Peak Ray. 112.9 cm/s DINESH(VTI)/BSA 4.41 cm2/m2 DINESH (VTI) 4.41 cm2 Tricuspid Valve TR P. Velocity 212 cm/s RAP ESTIMATE 10 mmHg TR Peak Gr. 18 mmHg RVSP 28 mmHg LEFT VENTRICLE Normal LV size and function. Mild concentric hypertrophy. Overall LVEF is 65-70%. RIGHT VENTRICLE RV is normal size and function. ATRIA Left atrium appears mildly dilated. AORTIC VALVE 29 mm Wheeler Rhonda 3 Ultra Resilia bioprosthetic TAVR appears well seated with normal function. Tra ce, paravalvular leak present at 1, 7, 11 o'clock in TTE SAX BASE. DINESH is measured at 4.41 cmsq. Peak / mean gradients of 13 / 6 mmHG. Peak velocity is measured at 1.83 m/sec. MITRAL VALVE Mild mitral annular calcification withotu stenosis. Mild regurgitation. MV not fully evaluated due to limited focused exam. TRICUSPID VALVE The tricuspid valve is normal in structure with mild regurgitation. GREAT VESSELS The aortic root is normal in size. The IVC is normal in size and collapses >50% with inspiration. PERICARDIUM Normal pericardium. No effusion. Other Information Study Quality: Adequate Conclusion Overall LVEF is 65-70%. Normal LV size and function. Mild concentric hypertrophy. RV is normal size and function. 29 mm Wheeler Rhonda 3 Ultra Resilia bioprosthetic TAVR appears well seated with normal function. Tr meenakshi, paravalvular leak present at 1, 7, 11 o'clock in TTE SAX BASE. DINESH is measured at 4.41 cmsq. P eak / mean gradients of 13 / 6 mmHG. Peak velocity is measured at 1.83 m/sec. Mild mitral annular calcification withotu stenosis. Mild regurgitation. MV not fully evaluated due to limited focused exam. The tricuspid valve is normal in structure with mild regurgitation. Normal pericardium. No effusion.
== END 2025-01-03 17:05 | disposition home or self-care (01) | DRG 266 ==
LOC: PAS IN 05:32 → EDSTATUS 07:30 → PAS IN 09:38 → PCU 3S 09:53
PROVIDERS: ADMIT Internal Medicine Cardiovascular Disease; ATTEND Internal Medicine Cardiovascular Disease
PROC: B41D1ZZ Fluoroscopy of Aorta and Bilateral Lower Extremity Arteries using Low Osmolar Contrast (ICD-10-PCS; 2025-01-02)
PROC: 02RF38Z Replacement of Aortic Valve with Zooplastic Tissue, Percutaneous Approach (ICD-10-PCS; principal; 2025-01-02 07:05)
DX: I35.0 Nonrheumatic aortic (valve) stenosis (principal); Z00.6 Encounter for examination for normal comparison and control in clinical research program; I50.23 Acute on chronic systolic (congestive) heart failure; I11.0 Hypertensive heart disease with heart failure; I25.10 Atherosclerotic heart disease of native coronary artery without angina pectoris; E11.9 Type 2 diabetes mellitus without complications; E87.6 Hypokalemia; E78.5 Hyperlipidemia, unspecified; G47.30 Sleep apnea, unspecified; Z88.8 Allergy status to other drugs, medicaments and biological substances
CPT/HCPCS: 33361; 36415; 71045; 71046; 76937; 80053; 81001; 82948; 83036; 83735; 83880; 85025; 85347; 85610; 85730; 86885; 86900; 86901; 86920; 87081; 93005; 93308; A4618; A6258; A6449; C1725; C1756; C1760; C1769; C1894; G0378; J0690; J1644; J1815; J2003; J2250; J2371; J2704; J2720; J3010; J3373; J3375; J3490; J7030; J7040; J7050; J7120; Q9967